=== PATIENT | male | born 1995 | race Caucasian/White ===

== ENCOUNTER 2021-12-22 19:27 | Emergency (ER) | payer BC ==
[2021-12-22 19:32] VITALS: BP 149/79; PULSE 71; RESP 18; TEMP 98; BMI 23.7
[2021-12-22] MEDS ORDERED: ACETAMINOPHEN 325 MG TABLET (FP) PO ONE (20:17)
[2021-12-22] MEDS ORDERED: ACETAMINOPHEN 325 MG TABLET (FP) ONE (20:17)
[2021-12-22] MEDS ORDERED: METHOCARBAMOL 500 MG TABLET PO ONE (20:43)
[2021-12-22] MEDS ORDERED: METHOCARBAMOL 500 MG TABLET ONE (20:47)
== END 2021-12-22 20:52 | disposition home or self-care (01) ==
LOC: JERFT 19:27
DX: S09.90XA Unspecified injury of head, initial encounter (principal); W18.30XA Fall on same level, unspecified, initial encounter
CPT/HCPCS: 99283-25